=== PATIENT | female | born 1960 | race Caucasian/White ===

== ENCOUNTER 2018-04-01 12:12 | Emergency (ER) | payer OTHER ==
[~2018-04-01] VITALS: Ht 154.9 cm; Wt 75.6 kg
[~2018-04-01 12:12] MED LIST: ATOR10TA PO; ESCI20TA10 PO; ESZO3TAB28 PO; OXYC-302 PO
[2018-04-01 12:13] VITALS: BP 167/87
[2018-04-01] MEDS ORDERED: LOSA25TA6 PO (12:28)
== END 2018-04-01 13:31 | disposition home or self-care (01) ==
LOC: ED 12:40
DX: S62.617A Displaced fracture of proximal phalanx of left little finger, initial encounter for closed fracture (principal); I10 Essential (primary) hypertension; W18.39XA Other fall on same level, initial encounter; Y93.89 Activity, other specified; Y92.098 Other place in other non-institutional residence as the place of occurrence of the external cause; Y99.8 Other external cause status
CPT/HCPCS: 26725; 99284